=== PATIENT | female | born 1975 | race Caucasian/White ===

== ENCOUNTER 2020-07-16 07:52 | Outpatient (REF) | payer OTHER, SELFPAY ==
[2020-07-16 09:35] LABS: COVID-19 Test Negative (Negative); IDNOW Serial# 55D5AD1C
== END 2020-07-16 07:53 | disposition home or self-care (01) ==
LOC: HO.EMPCOV 07:52
PROVIDERS: Visit Provider Internal Medicine
DX: Z20.828 Contact with and (suspected) exposure to other viral communicable diseases (principal)
CPT/HCPCS: 87635; C9803

== ENCOUNTER 2020-08-15 07:31 | Outpatient (REF) | payer OTHER, SELFPAY ==
[2020-08-15 08:01] LABS: COVID-19 Test Negative (Negative)
== END 2020-08-15 07:32 | disposition home or self-care (01) ==
LOC: HO.EMPCOV 07:31
PROVIDERS: PCP Internal Medicine; Visit Provider Internal Medicine
DX: Z20.828 Contact with and (suspected) exposure to other viral communicable diseases (principal)
CPT/HCPCS: 87635; C9803

== ENCOUNTER 2021-09-09 06:13 | Outpatient (REF) | payer BC, SELFPAY ==
[2021-09-09 08:08] LABS: Cholesterol 208 mg/dL; HDL Cholesterol 53 mg/dL; LDL Cholesterol Calculated 139 mg/dl; Triglycerides 84 mg/dL
[2021-09-09 09:05] LABS: Folate 18.4 ng/mL (> or = 4.0); Vitamin B12 324 pg/mL (200-900)
== END 2021-09-09 06:14 | disposition home or self-care (01) ==
LOC: HO.LAB 06:13
PROVIDERS: PCP Internal Medicine; Visit Provider Internal Medicine
DX: Z00.00 Encounter for general adult medical examination without abnormal findings (principal); E53.8 Deficiency of other specified B group vitamins; E78.5 Hyperlipidemia, unspecified
CPT/HCPCS: 36415; 80061; 82607; 82746

== ENCOUNTER 2021-09-10 13:58 | Outpatient (REF) | payer BC, SELFPAY ==
[2021-09-10 16:50] LABS: Alanine Aminotransferase 13 U/L (0-31); Albumin Level 4.2 g/dL (3.5-5.0); Alkaline Phosphatase 36 U/L (39-117); Anion Gap 9 (12-20); Aspartate Amino Transferase 17 U/L (5-31); Bilirubin Total 0.3 mg/dL (0.0-1.0); Blood Urea Nitrogen 13 mg/dL (9-16); Calcium 9.4 mg/dL (8.4-10.2); Carbon Dioxide 28 mmol/L (22-29); Chloride 108 mmol/L (96-108); Estimated Glomerular Filt Rate > 60; Glucose Fasting 80 mg/dL (60-99); Iron 19 mcg/dL (30-160); Percent Iron Saturation 4 % (15-50); Sodium 141 mmol/L (135-145); Total Iron Binding Capacity 494 mcg/dL (228-428); Total Protein 7.3 g/dL (6.5-8.0); Unsaturated Iron Binding 475 ug/dL
[2021-09-10 16:53] LABS: TSH reflex Free T4 0.75 uIU/mL (0.32-4.0)
== END 2021-09-10 13:59 | disposition home or self-care (01) ==
LOC: HO.HMGCLDS 13:58
PROVIDERS: PCP Internal Medicine; Visit Provider Internal Medicine
DX: Z00.00 Encounter for general adult medical examination without abnormal findings (principal); E78.5 Hyperlipidemia, unspecified
CPT/HCPCS: 36415; 80053; 83540; 84443

== ENCOUNTER 2022-03-07 09:43 | Outpatient (REF) | payer BC, SELFPAY ==
[2022-03-07 12:09] LABS: Hematocrit 34.4 % (37.0-47.0); Hemoglobin 10.8 g/dl (12.0-16.0); Mean Corpuscular HGB Conc 31.4 g/dl (31.0-35.0); Mean Corpuscular Hemoglobin 27.3 pg (27.0-33.0); Mean Corpuscular Volume 87.1 fL (80.0-98.0); Mean Platelet Volume 10.6 fL (9.4-12.3); Platelet Count 258 X10*3/uL (160-400); Red Blood Count 3.95 X10*6/uL (4.20-5.50); Red Cell Distribution Width 20.2 % (11.0-16.0); White Blood Count 4.5 X10*3/uL (4.8-10.8)
[2022-03-07 12:11] LABS: Appearance Urine CLEAR; Color Urine YELLOW; Glucose Urine UA NEG (NEG); Leukocyte Esterase Urine 1+ (NEG); Nitrite Urine NEG (NEG); PH 6.5 (5.0-8.0); UACC Culture Trigger YES; Urine Blood 1+ (NEG); Urine Ketones NEG (NEG); Urine Protein NEG (NEG-TRACE)
[2022-03-07 12:37] LABS: Iron 23 mcg/dL (30-160); Percent Iron Saturation 6 % (15-50); Total Iron Binding Capacity 381 mcg/dL (228-428); Unsaturated Iron Binding 358 ug/dL
[2022-03-07 12:40] LABS: Oval Fat Bodies Urine NOTED; Squamous Epithelial Cell Urine 2+ /LPF
[2022-03-07 12:41] LABS: Bacteria Urine TRACE /LPF; WBC Urine 30-49 /HPF (0-4)
[2022-03-07 12:42] LABS: RBC Urine 0-2 /HPF (0)
== END 2022-03-07 09:44 | disposition home or self-care (01) ==
LOC: HO.HMGCLDS 09:43
PROVIDERS: Visit Provider Internal Medicine
DX: D50.9 Iron deficiency anemia, unspecified (principal)
CPT/HCPCS: 36415; 81001; 81003; 83540; 85027; 87086; 87088; 87186

== ENCOUNTER 2023-01-02 06:08 | Outpatient (REF) | payer BC, SELFPAY ==
[2023-01-02 11:25] LABS: MANUAL DIFF FLAG NO
[2023-01-02 11:43] LABS: Basophils Percent Auto 0.9 % (0-2); Eosinophils Absolute Auto 0.2 X10*3/uL (0.0-0.4); Eosinophils Percent Auto 5.3 % (0-4); Hematocrit 39.1 % (37.0-47.0); Hemoglobin 11.8 g/dl (12.0-16.0); Imm Gran Abs Auto 0.01 X10*3/uL (0.00-0.03); Imm Gran Pct Auto 0.2 % (0.0-0.4); Lymphocytes Absolute Auto 1.3 X10*3/uL (1.2-4.9); Lymphocytes Percent Auto 29.8 % (20-40); Mean Corpuscular HGB Conc 30.2 g/dl (31.0-35.0); Mean Corpuscular Hemoglobin 26.5 pg (27.0-33.0); Mean Corpuscular Volume 87.7 fL (80.0-98.0); Mean Platelet Volume 11.1 fL (9.4-12.3); Monocytes Absolute Auto 0.4 X10*3/uL (0.1-1.2); Neutrophils Absolute Auto 2.5 x10*3/uL (2.0-8.3); Neutrophils Percent Auto 55.8 % (45-73); Platelet Count 301 X10*3/uL (160-400); Red Blood Count 4.46 X10*6/uL (4.20-5.50); Red Cell Distribution Width 22.8 % (11.0-16.0); White Blood Count 4.5 X10*3/uL (4.8-10.8)
[2023-01-02 12:38] LABS: Alanine Aminotransferase 15 U/L (0-31); Albumin Level 4.1 g/dL (3.5-5.0); Alkaline Phosphatase 36 U/L (39-117); Anion Gap 13 (12-20); Aspartate Amino Transferase 17 U/L (5-31); Bilirubin Total 0.4 mg/dL (0.0-1.0); Blood Urea Nitrogen 17 mg/dL (9-16); Carbon Dioxide 23 mmol/L (22-29); Chloride 108 mmol/L (96-108); Cholesterol 210 mg/dL; Estimated Glomerular Filt Rate > 60; Glucose Fasting 87 mg/dL (60-99); HDL Cholesterol 49 mg/dL; Iron 49 mcg/dL (30-160); LDL Cholesterol Calculated 138 mg/dl; Percent Iron Saturation 14 % (15-50); Potassium 4.4 mmol/L (3.3-5.1); Sodium 140 mmol/L (135-145); Total Iron Binding Capacity 348 mcg/dL (228-428); Total Protein 6.8 g/dL (6.5-8.0); Triglycerides 115 mg/dL; Unsaturated Iron Binding 299 ug/dL
[2023-01-02 13:16] LABS: Folate 13.6 ng/mL (> or = 4.0); TSH reflex Free T4 2.26 uIU/mL (0.32-4.0); Vitamin B12 432 pg/mL (200-900)
== END 2023-01-02 06:09 | disposition home or self-care (01) ==
LOC: HO.HMGCLDS 06:08
PROVIDERS: PCP Internal Medicine; Visit Provider Internal Medicine
DX: Z00.00 Encounter for general adult medical examination without abnormal findings (principal); D50.9 Iron deficiency anemia, unspecified; E53.8 Deficiency of other specified B group vitamins; E78.5 Hyperlipidemia, unspecified
CPT/HCPCS: 36415; 80053; 80061; 82607; 82746; 83540; 84443; 85025

== ENCOUNTER 2023-01-19 21:37 | Emergency (ER) | payer BC, SELFPAY ==
--- NOTE | ~2023-01-19 | CT_ITS ---
EXAMINATION: CT ABDOMEN AND PELVIS WITH CONTRAST CLINICAL INFORMATION: Right flank pain COMPARISON: None available. TECHNIQUE: Multidetector volumetric images were obtained from the superior aspect of the liver through the pubic symphysis following administration 85 mL of Omnipaque 350 intravenous contrast. Sagittal and coronal reformatted images were obtained on the technologist's workstation. Oral contrast: No This CT examination was performed using dose optimization techniques as appropriate, variously including the following: *Automated exposure control *Adjustment of mA and/or kV according to patient size (this includes techniques or standardized protocols for targeted exams where dose is matched to indication/reason for exam; i.e. extremities or head) *Use of iterative reconstruction technique DLP: 528 mGy-cm FINDINGS: LUNG BASES: The visualized lung bases are unremarkable. LIVER, GALLBLADDER, AND BILIARY TREE: The liver is normal in size, shape, and attenuation. No focal hepatic lesion or biliary ductal dilatation is present. The gallbladder is unremarkable with no evidence of radiopaque gallstones, gallbladder wall thickening, or obvious pericholecystic inflammatory changes. PANCREAS: Unremarkable. SPLEEN: Unremarkable. ADRENAL GLANDS: Unremarkable. KIDNEYS AND URETERS: There is patchy heterogeneity of the right nephrogram, along with urothelial hyperemia of the right ureter compatible with pyelonephritis. Minimal right perinephric fat stranding. Left kidney unremarkable. BLADDER: Unremarkable. GASTROINTESTINAL TRACT: The small and large bowel are unremarkable. The appendix is unremarkable. ABDOMINAL WALL: No significant hernia is appreciated. LYMPH NODES: Normal. VASCULAR: Unremarkable. PELVIC VISCERA: There is a 7.3 cm mass in the central uterus, and a 4.5 cm mass within the right anterolateral uterus, presumably fibroids. No adnexal abnormalities. OSSEOUS STRUCTURES: Unremarkable. CT/CT abdomen pelvis w IV con IMPRESSION: * Acute uncomplicated right pyelonephritis with ureteritis. * Presumptive uterine fibroids as described. Recommend nonemergent pelvic ultrasound or MRI without and with contrast as clinically indicated
[2023-01-19 21:48] VITALS: BP 126/69; PULSE 90; RESP 18; TEMP 36.8; O2SAT 99; BMI 25.8
[2023-01-19 22:16] LABS: Basophils Percent Auto 0.2 % (0-2); Eosinophils Percent Auto 0.2 % (0-4); Hematocrit 39.9 % (37.0-47.0); Hemoglobin 12.8 g/dl (12.0-16.0); Imm Gran Abs Auto 0.03 X10*3/uL (0.00-0.03); Imm Gran Pct Auto 0.3 % (0.0-0.4); Lymphocytes Absolute Auto 0.5 X10*3/uL (1.2-4.9); Lymphocytes Percent Auto 3.9 % (20-40); MANUAL DIFF FLAG SCAN; Mean Corpuscular HGB Conc 32.1 g/dl (31.0-35.0); Mean Corpuscular Hemoglobin 27.6 pg (27.0-33.0); Mean Platelet Volume 9.8 fL (9.4-12.3); Monocytes Absolute Auto 0.4 X10*3/uL (0.1-1.2); Monocytes Percent Auto 3.4 % (2-11); Neutrophils Absolute Auto 10.8 x10*3/uL (2.0-8.3); Platelet Count 198 X10*3/uL (160-400); Red Blood Count 4.64 X10*6/uL (4.20-5.50); Red Cell Distribution Width 21.8 % (11.0-16.0); SCAN SMEAR FLAG 1; White Blood Count 11.7 X10*3/uL (4.8-10.8)
[2023-01-19 22:26] LABS: SLIDE REVIEW VERIFIED
[2023-01-19 22:41] LABS: Alanine Aminotransferase 15 U/L (0-31); Albumin Level 4.4 g/dL (3.5-5.0); Alkaline Phosphatase 43 U/L (39-117); Anion Gap 17 (12-20); Aspartate Amino Transferase 19 U/L (5-31); Bilirubin Direct 0.2 mg/dL (0.0-0.5); Bilirubin Total 0.8 mg/dL (0.0-1.0); Blood Urea Nitrogen 18 mg/dL (9-16); Calcium 9.7 mg/dL (8.4-10.2); Carbon Dioxide 24 mmol/L (22-29); Chloride 102 mmol/L (96-108); Creatinine Clr Calc Pharmacy 73.9; Estimated Glomerular Filt Rate > 60; Glucose Random 129 mg/dL (60-115); Lipase 13 U/L (8-78); Potassium 4.5 mmol/L (3.3-5.1); Sodium 138 mmol/L (135-145); Total Protein 7.4 g/dL (6.5-8.0)
[2023-01-19 22:42] VITALS: BP 106/55; PULSE 86; RESP 18; TEMP 37.4; O2SAT 98
[2023-01-19 22:44] LABS: Appearance Urine Clear; Color Urine Yellow; Glucose Urine UA Negative (Negative); Leukocyte Esterase Urine Small (1+) (Negative); Nitrite Urine Negative (Negative); PH 5.5 (5.0-9.0); UMIC TRIGGER UACC YES; Urine Blood Moderate (2+) (Negative); Urine Ketones 15 mg/dL (Negative); Urine Protein 100 (2+) mg/dL (Neg-Trace)
[2023-01-19 22:46] LABS: Bacteria Urine None Seen (None Seen); Hyaline Casts Urine 0-2 /LPF (0-2); Squamous Epithelial Cell Urine >20 /HPF (0-2); UACC Culture Trigger YES; WBC Urine >50 /HPF (0-5)
[2023-01-19] MEDS: Acetaminophen 325 MG TABLET 650 MG PO (22:52)
[2023-01-19] MEDS: Ondansetron ODT 4 MG TAB.RAPDIS SUBLINGUAL (22:52)
[2023-01-19 23:47] LABS: UPreg QC Valid YES; Urine Pregnancy NEGATIVE (NEGATIVE)
--- NOTE | 2023-01-19 23:52 | ED.FEMALEGU ---
HPI - Female Genitourinary General Chief complaint: Urogenital-Female Stated complaint: uti on antibiotics ,lower back pain headache Time Seen by Provider: 01/19/23 22:29 Source: patient Mode of arrival: ambulatory Limitations: no limitations History of Present Illness HPI Narrative: 47-year-old female history of migraines, hyperlipidemia, hypothyroidism, iron deficiency anemia presenting to the emergency department for evaluation of UTI symptoms, right flank pain. Patient tells me she started having urinary frequency, urgency, dysuria starting Thursday and on Thursday she started having right flank pain, associated nausea, low-grade fevers, patient reports max temperature a 100.2 degrees F. patient tells me she gets frequent UTIs however this 1 feels different. Patient reports she is currently taking 1 day worth of Macrobid. She tells me this was ordered by her OBGYN. Patient denies vomiting, diarrhea, headache, vision changes, chest pain, shortness of breath Related Data Home Medications Medication Instructions Recorded Confirmed ascorbic acid (vitamin C) 500 mg 500 mg PO DAILY 08/13/20 09/16/22 tablet ferrous sulfate 142 mg (45 mg 142 mg PO DAILY 08/13/20 09/16/22 iron) tablet,extended release norethindrone (contraceptive) 0.35 0.35 mg PO DAILY 08/13/20 09/16/22 mg tablet Previous Rx's Medication Instructions Recorded levothyroxine 125 mcg tablet 125 mcg PO DAILY #90 tabs 01/02/23 Allergies Allergy/AdvReac Type Severity Reaction Status Date / Time amoxicillin [AMOXICILLIN] Allergy Unknown Hives, rash Verified 01/19/23 21:54 flaxseed [FLAXSEED] Allergy Unknown Anaphylaxis, Verified 01/19/23 21:54 Throat swelling Review of Systems Review of Systems: Constitutional : No Weight loss, + Fever, + Chills, + Fatigue, + Malaise ENT/Mouth : No sore throat, No Rhinorrhea Eyes: No Eye Pain, No Swelling, No Redness Cardiovascular : No Chest Pain, No SOB, No Dyspnea on Exertion, No Orthopnea, No Edema, No Palpitations Respiratory : No Cough, No Sputum, No Wheezing Gastrointestinal : + Nausea, No Vomiting, No Diarrhea, No Constipation, No abdominal Pain, No Hematochezia, No Melena Genitourinary : No Dysuria, No Urinary Frequency, No Hematuria, Musculoskeletal : No joint pain, No Myalgias, No Joint Swelling, + flank pain Skin : No Skin Lesions, No rash Neuro : No Weakness, No Numbness, No Dizziness, No Headache Psych : No Anxiety/Panic, No Depression All other systems reviewed and are negative Yes all other systems are reviewed and are negative [facility] Past Medical History Attestation statement: The following information was validated with the patient. Source: old records reviewed and nursing notes reviewed Medical History Annual physical exam Graves disease Hypercholesterolemia Hyperlipemia Iron (Fe) deficiency anemia Mammogram normal Migraine without aura and without status migrainosus, not intractable Normal Pap smear Uterine fibroid Vitamin B12 deficiency Surgical History H/O removal of cyst History of ganglion cyst History of radioactive iodine thyroid ablation Family History Family History Father Stroke History of heart bypass surgery COPD (chronic obstructive pulmonary disease) Mother Asthma Brother No problems noted. Brother No problems noted. Sister No problems noted. 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 Oriented X3.? No acute distress.? Head: Normocephalic, atraumatic, no step-offs or deformities Eyes: Pupils equal, round and reactive to light.? CVS: Normal heart rate and rhythm.? Pulses normal.? Respiratory: No respiratory distress.? Breath sounds normal.? Abdomen: Soft and nontender.? Skin: Skin warm and dry.? Normal skin color.? Normal skin turgor.? Extremities: No lower extremity edema.? No calf ttp. 5/5 strength to bilateral upper and lower extremities Back: No midline tenderness, no C-spine tenderness, full range of motion, + right-sided CVA tenderness , negative on the left Neuro: Oriented X 3.? No motor deficit.? No sensory deficit. CN 2-12 intact Course Reevaluation(s) Reevaluation #1: CBC with slight leukocytosis.. Chemistry with no acute findings requiring intervention. Negative lactic. Patient's UA with moderate amount of blood however she is on her menses, no nitrites, no bacteria unlikely UTI. CT of the abdomen pelvis pending. Sign out to Dr. King Time: 01:19 Medications Administered Discontinued Medications Generic Name Dose Route Start Last Admin Trade Name Freq PRN Reason Stop Dose Admin Acetaminophen 650 mg 01/19/23 22:48 01/19/23 22:52 Acetaminophen 325 Mg Tablet PO 01/19/23 22:49 650 mg ONCE ONE Administration Sodium Chloride 1,000 mls @ 999 mls/hr 01/19/23 23:45 01/20/23 00:26 Ns IV 01/20/23 00:45 999 mls/hr .Q1H1M JANAE Administration Ceftriaxone Sodium 1 gm/ 50 mls @ 100 mls/hr 01/19/23 23:34 01/20/23 00:48 Sodium Chloride IV 01/20/23 00:03 100 mls/hr ONCE ONE Administration Iohexol 85 ml 01/20/23 01:06 01/20/23 01:06 Iohexol 350 Mg/Ml 100 Ml Infus..Btl IV 01/20/23 01:07 85 ml ONCE ONE Administration Ketorolac Tromethamine 30 mg 01/19/23 23:34 01/20/23 00:23 Ketorolac Tromethamine 15 Mg/Ml Vial IVPUSH 01/19/23 23:35 30 mg ONCE ONE Administration Ondansetron HCl 4 mg 01/19/23 22:48 01/19/23 22:52 Ondansetron Odt 4 Mg Tab.Rapdis SUBLINGUAL 01/19/23 22:49 4 mg ONCE ONE Administration Medical Decision Making Medical Decision Making [facility] Narrative: [id number] 47-year-old female presents with UTI symptoms and right flank pain all which started on Thursday. Reports associated nausea, fevers, chills. Physical exam significant for right-sided CVA tenderness, blood pressure slightly soft. Patient appears uncomfortable. Concerns for possible complicated UTI versus pyelonephritis versus simple UTI versus cystitis versus obstructing uropathy or kidney stone. Unlikely acute abdomen. No signs of cauda equina or epidural abscess. Plan labs, imaging, urine, . Differential Diagnosis Differential Diagnoses: The differential diagnosis associated with the presentation includes Concerns for possible complicated UTI versus pyelonephritis versus simple UTI versus cystitis versus obstructing uropathy or kidney stone. Unlikely acute abdomen. No signs of cauda equina or epidural abscess. Admission/Observation Consideration of admission/observation: Escalation of care including admission/observation considered Unlikely Lab Data [facility] Lab Attestation statement: I reviewed the patient's lab results. 01/19/23 22:10 01/19/23 22:10 Labs: Lab Results 01/19/23 01/19/23 01/19/23 Range/Units 22:10 22:10 22:38 WBC 11.7 H (4.8-10.8) X10*3/uL RBC 4.64 (4.20-5.50) X10*6/uL Hgb 12.8 (12.0-16.0) g/dl Hct 39.9 (37.0-47.0) % MCV 86.0 (80.0-98.0) fL MCH 27.6 (27.0-33.0) pg MCHC 32.1 (31.0-35.0) g/dl RDW 21.8 H (11.0-16.0) % Plt Count 198 D (160-400) X10*3/uL MPV 9.8 (9.4-12.3) fL Immature Gran % (Auto) 0.3 (0.0-0.4) % Neut % (Auto) 92.0 H (45-73) % Lymph % (Auto) 3.9 L (20-40) % [place] % (Auto) 3.4 (2-11) % Eos % (Auto) 0.2 (0-4) % Baso % (Auto) 0.2 (0-2) % Lymph # (Auto) 0.5 L (1.2-4.9) X10*3/uL [place] # (Auto) 0.4 (0.1-1.2) X10*3/uL Eos # (Auto) 0.0 (0.0-0.4) X10*3/uL Baso # (Auto) 0.0 (0.0-0.2) X10*3/uL Abs Immat Gran (auto) 0.03 (0.00-0.03) X10*3/uL Absolute Neuts (auto) 10.8 H (2.0-8.3) x10*3/uL Absolute Nucleated RBC 0.000 (0.0-0.012) X10*3/uL Nucleated RBC % (auto) 0.0 (0.0-0.2) /100WBC Smear Tech's Comments VERIFIED Sodium 138 (135-145) mmol/L Potassium 4.5 (3.3-5.1) mmol/L Chloride 102 (96-108) mmol/L Carbon Dioxide 24 (22-29) mmol/L Anion Gap 17 (12-20) BUN 18 H (9-16) mg/dL Creatinine 0.95 (0.5-1.4) mg/dL Estim Creat Clear Calc 73.9 Estimated GFR > 60 Random Glucose 129 H (60-115) mg/dL Lactic Acid (0.5-2.0) mmol/L Calcium 9.7 D (8.4-10.2) mg/dL Total Bilirubin 0.8 (0.0-1.0) mg/dL Direct Bilirubin 0.2 (0.0-0.5) mg/dL AST 19 (5-31) U/L ALT 15 (0-31) U/L Alkaline Phosphatase 43 (39-117) U/L Total Protein 7.4 (6.5-8.0) g/dL Albumin 4.4 (3.5-5.0) g/dL Lipase 13 (8-78) U/L Urine Color Yellow Urine Appearance Clear Urine pH 5.5 (5.0-9.0) Ur Specific [place] 1.020 (1.005-1.025) Urine Protein 100 (2+) H (Neg-Trace) mg/dL Urine Glucose (UA) Negative (Negative) mg/dL Urine Ketones 15 (Negative) mg/dL Urine Blood Moderate (2+) H (Negative) Urine Nitrite Negative (Negative) Ur Leukocyte Esterase Small (1+) H (Negative) Urine RBC 11-20 H (0-2) /HPF Urine WBC >50 H (0-5) /HPF Ur Squamous Epith Cells >20 (0-2) /HPF Urine Bacteria None Seen (None Seen) Hyaline Casts 0-2 (0-2) /LPF Urine Test (NEGATIVE) 01/19/23 01/20/23 Range/Units 22:38 00:45 WBC (4.8-10.8) X10*3/uL RBC (4.20-5.50) X10*6/uL Hgb (12.0-16.0) g/dl Hct (37.0-47.0) % MCV (80.0-98.0) fL MCH (27.0-33.0) pg MCHC (31.0-35.0) g/dl RDW (11.0-16.0) % Plt Count (160-400) X10*3/uL MPV (9.4-12.3) fL Immature Gran % (Auto) (0.0-0.4) % Neut % (Auto) (45-73) % Lymph % (Auto) (20-40) % [place] % (Auto) (2-11) % Eos % (Auto) (0-4) % Baso % (Auto) (0-2) % Lymph # (Auto) (1.2-4.9) X10*3/uL [place] # (Auto) (0.1-1.2) X10*3/uL Eos # (Auto) (0.0-0.4) X10*3/uL Baso # (Auto) (0.0-0.2) X10*3/uL Abs Immat Gran (auto) (0.00-0.03) X10*3/uL Absolute Neuts (auto) (2.0-8.3) x10*3/uL Absolute Nucleated RBC (0.0-0.012) X10*3/uL Nucleated RBC % (auto) (0.0-0.2) /100WBC Smear Tech's Comments Sodium (135-145) mmol/L Potassium (3.3-5.1) mmol/L Chloride (96-108) mmol/L Carbon Dioxide (22-29) mmol/L Anion Gap (12-20) BUN (9-16) mg/dL Creatinine (0.5-1.4) mg/dL Estim Creat Clear Calc Estimated GFR Random Glucose (60-115) mg/dL Lactic Acid 1.0 (0.5-2.0) mmol/L Calcium (8.4-10.2) mg/dL Total Bilirubin (0.0-1.0) mg/dL Direct Bilirubin (0.0-0.5) mg/dL AST (5-31) U/L ALT (0-31) U/L Alkaline Phosphatase (39-117) U/L Total Protein (6.5-8.0) g/dL Albumin (3.5-5.0) g/dL Lipase (8-78) U/L Urine Color Urine Appearance Urine pH (5.0-9.0) Ur Specific [place] (1.005-1.025) Urine Protein (Neg-Trace) mg/dL Urine Glucose (UA) (Negative) mg/dL Urine Ketones (Negative) mg/dL Urine Blood (Negative) Urine Nitrite (Negative) Ur Leukocyte Esterase (Negative) Urine RBC (0-2) /HPF Urine WBC (0-5) /HPF Ur Squamous Epith Cells (0-2) /HPF Urine Bacteria (None Seen) Hyaline Casts (0-2) /LPF Urine Test NEGATIVE (NEGATIVE) Independent Interpretation I performed an independent interpretation of an: CT Scan Radiology Impression Discussion of test interpretation with radiology: I have reviewed the radiologist's reading. Core Measures AMI core measures followed: Yes Measure exclusions: not indicated Discharge Plan Discharge Clinical Impression: UTI symptoms, Acute right flank pain Patient Disposition: Home, Self-Care Instructions: Abdominal Pain (ED), Flank Pain (ED), Urinary Urgency and Frequency (DC) Additional Instructions: Take your medications as prescribed. If you were prescribed antibiotics today, it is important that you take your medication to their entirety, do not skip any doses, do not finish them early. Follow-up with your primary care provider this week. Return to the emergency department with new or worsening symptoms. Such as fevers, chills, chest pain, shortness of breath, nausea, vomiting, dizziness, headache, vision changes, lethargy In case of emergency call 911 Prescriptions: No Action levothyroxine 125 mcg tablet 125 mcg PO DAILY Qty: 90 3RF norethindrone (contraceptive) 0.35 mg tablet 0.35 mg PO DAILY Slow Fe 142 mg (45 mg iron) tablet extended release 142 mg PO DAILY ascorbic acid (vitamin C) 500 mg tablet 500 mg PO DAILY Referrals: Physician,Unknown J [Primary Care Provider] - 2 days
[2023-01-20] MEDS: Ketorolac Tromethamine 15 MG/ML VIAL 30 MG IVPUSH (00:23)
[2023-01-20] MEDS: 0.9 % Sodium Chloride 1,000 ML 999 ML IV (00:26)
[2023-01-20 00:38] VITALS: BP 110/68; PULSE 79; RESP 16; TEMP 36.8; O2SAT 97
--- NOTE | 2023-01-20 00:41 | PC.NURSE ---
antibiotic late due to trouble with obtaining second set of blood cultures. 2nd set culture being drawn now by PCT. will administer antibiotic as soon as blood cultures obtained. pt medicated per oct. will CTM.
[2023-01-20] MEDS: cefTRIAXone sodium 1 GM in 0.9 % Sodium Chloride 50 ML IV (00:48)
[2023-01-20] MEDS: iohexoL 350 MG/ML 100 ML INFUS..BTL 85 ML IV (01:06)
== END 2023-01-20 02:48 | disposition home or self-care (01) ==
PROVIDERS: Physician Assistant; Emergency Provider Internal Medicine
DX: N12 Tubulo-interstitial nephritis, not specified as acute or chronic (principal); N39.0 Urinary tract infection, site not specified; R10.9 Unspecified abdominal pain; Z79.899 Other long term (current) drug therapy
CPT/HCPCS: 36415; 74177; 80048; 80076; 81001; 81025; 83605; 83690; 85025; 87040; 87086; 96361; 96374; 96375; 99284; J0696; J1885; Q9967

== ENCOUNTER 2023-04-30 08:03 | Outpatient (AMB) | payer BC, SELFPAY ==
--- NOTE | 2023-04-30 08:08 | MHC.OFFWIV ---
Intake Vital Signs 04/30/23 08:10 Height 5 ft 6 in Weight 160 lb 6 oz BMI 25.9 BP 106/88 Blood Pressure Location Lt brachial Position Sitting Pulse 80 Pulse Source Pulse Oximeter Temp 98 F Temp Source Oral Pulse Oximetry (%) 98 Oxygen Delivery Method Room Air Intake Visit Reasons: EP Headache/?Thyroid/Heart Intake Note: Pt is here today for headache and also heart starts racing started 3 wks ago Patient Tobacco Use Status: Never used Tobacco Allergies amoxicillin [AMOXICILLIN] Allergy (Unknown, Verified 04/30/23 08:11) Hives, rash flaxseed [FLAXSEED] Allergy (Unknown, Verified 04/30/23 08:11) Anaphylaxis, Throat swelling Do you need a note to return to daycare/school/sports/work: No HPI HPI Comments History of Present Illness Details 47-year-old female history of Graves disease on levothyroxine a presents for episodic palpitations and intermittent headaches. Patient states that for the past several weeks she has been having intermittent episodes headache will. During several she also endorses palpitations. She endorses some cold intolerance. She is concerned about her thyroid and was attempting to get in touch with the primary care point no ointments were available. She denies any chest pain or shortness of breath during these episodes. Denies any unexplained weight loss or weight gain or fever chills. [facility] Medical History Annual physical exam Graves disease Hypercholesterolemia Hyperlipemia Iron (Fe) deficiency anemia Mammogram normal Migraine without aura and without status migrainosus, not intractable Normal Pap smear Uterine fibroid Vitamin B12 deficiency Surgical History H/O removal of cyst History of ganglion cyst History of radioactive iodine thyroid ablation Family History Father Stroke History of heart bypass surgery COPD (chronic obstructive pulmonary disease) Mother Asthma Brother No problems noted. Brother No problems noted. Sister No problems noted. 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) Housing: House Patient Tobacco Use Status: Never used Tobacco e-Cigarette/Vaping Use: Never Used Current occupational status: employed Cognitive needs: No Hearing needs: No Vision needs: No Review of Systems Const All systems reviewed & are unremarkable except as noted in HPI and below Denies fever(s), Denies headache(s) and Denies weakness Eyes Reports no additional complaints ENT Reports no additional complaints and Denies headache(s) Card Denies chest pain, Reports rapid heart rate, Reports irregular heart rhythm, Denies leg edema and Denies dyspnea Resp Denies cough and Denies dyspnea GI Denies abdominal pain, Denies nausea and Denies vomiting Denies urinary frequency and Denies dysuria Musc Reports no additional complaints Neuro Denies headache(s) and Denies weakness Psych Reports no additional complaints Endo Reports no additional complaints Physical Exam Vital Signs: Last Vital Signs Temp 98 F 04/30/23 08:10 Pulse 80 04/30/23 08:10 BP 106/88 04/30/23 08:10 Pulse Ox 98 04/30/23 08:10 Oxygen Delivery Method Room Air 04/30/23 08:10 BMI result Body Mass Index 25.9 Const General: cooperative, no acute distress and alert Orientation/consciousness: patient oriented x3 Limitations: no limitations HEENT Head: Yes normal to inspection Ears: hearing grossly normal bilaterally and external ears normal General nose exam: Normal external nose present Eyes General: appearance normal, both eyes and all related structures Neck Neck: Yes normal visual inspection Chest Chest palpation & inspection: normal inspection of the chest Resp Effort & Inspection: normal respiratory effort, able to speak in complete sentences and no audible wheezes Auscultation: clear to auscultation bilaterally Cardio Rate: regular rate Rhythm: regular rhythm Heart sounds: S1 normal heart sound present and S2 normal heart sound present GI Inspection: Yes normal to inspection Palpation (GI): Soft to palpation and nontender Skin General skin exam: no rashes or lesions noted Neuro General: patient oriented x3 Psych Appearance: grossly normal Mental Status: mental status grossly normal Speech and movement: Normal speech and movement present Affect: normal affect Attitude: cooperative Thought process: Normal thought process present Thought content: Normal thought content present Assessment & Plan Assessment & Plan (1) Palpitations: Code(s): R00.2 - Palpitations Plan VSs. Exam patient's presents oriented no acute distress exam is otherwise unremarkable note above. Given patient being taken in history of concerning consideration is arrhythmia versus issues concerning thyroid for later brief disease. Withdrawal basic labs. Given the absence of chest pain or palpitations at this time do not feel an EKG is necessary. If labs are normal discussed with patient that she might want to reach out to her PCP to schedule Holter monitor. Discharge instructions, follow up and treatment are discussed with patient in my usual fashion. Alternatives in treatment are also discussed. The patient will return for worsening symptoms or as needed. Advised that any labs/imaging ordered will be followed up on and contact made if further treatment needed. Counseled that patient's condition may require further evaluation and/or treatment. Symptoms of concern for worsening disorder discussed in detail in my customary manner. Patient does verbalize understanding of the plan, there are no apparent barriers to communication. The patient is given the opportunity to ask questions and have them answered to his/her satisfaction Orders: Orders Basic Metabolic Panel Today R00.2 - Palpitations Magnesium Today R00.2 - Palpitations TSH reflex Free T4 Today R00.2 - Palpitations Complete Blood Count no Diff Today R00.2 - Palpitations Patient Instructions: You were seen for you palpitations. At this time your exam is reassuring. While we do not know for sure you palpitations could be related to your thyroid or arrhythmia. Lab work was drawn and you will be notified of abnormal results. If negative you may discuss a Holter monitor with you pcp. if you experience any new or worsening symptoms please return or present to the emergency department Coding Level of Care Code Est Pt Level 3 (75033) Diagnoses Palpitations R00.2
[2023-04-30 08:10] VITALS: BP 106/88; PULSE 80; TEMP 36.6; O2SAT 98; BMI 25.9
== END 2023-04-30 08:41 | disposition home or self-care (01) ==
PROVIDERS: PCP Internal Medicine; Visit Provider Physician Assistant
DX: R00.2 Palpitations (principal)
CPT/HCPCS: 99213

== ENCOUNTER 2023-04-30 08:35 | Outpatient (REF) | payer BC, SELFPAY ==
[2023-04-30 11:43] LABS: Hematocrit 39.2 % (37.0-47.0); Hemoglobin 12.3 g/dl (12.0-16.0); Mean Corpuscular HGB Conc 31.4 g/dl (31.0-35.0); Mean Corpuscular Hemoglobin 28.4 pg (27.0-33.0); Mean Corpuscular Volume 90.5 fL (80.0-98.0); Mean Platelet Volume 11.2 fL (9.4-12.3); Platelet Count 215 X10*3/uL (160-400); Red Blood Count 4.33 X10*6/uL (4.20-5.50); Red Cell Distribution Width 13.3 % (11.0-16.0); White Blood Count 7.3 X10*3/uL (4.8-10.8)
[2023-04-30 12:12] LABS: Anion Gap 11 (12-20); Blood Urea Nitrogen 14 mg/dL (9-16); Calcium 9.6 mg/dL (8.4-10.2); Carbon Dioxide 27 mmol/L (22-29); Chloride 105 mmol/L (96-108); Estimated Glomerular Filt Rate > 60; Glucose Random 89 mg/dL (60-115); Sodium 139 mmol/L (135-145)
[2023-04-30 12:31] LABS: TSH reflex Free T4 1.62 uIU/mL (0.32-4.0)
== END 2023-04-30 08:36 | disposition home or self-care (01) ==
LOC: HO.HMGCLDS 08:35
PROVIDERS: PCP Internal Medicine; Visit Provider Physician Assistant
DX: R00.2 Palpitations (principal)
CPT/HCPCS: 36415; 80048; 83735; 84443; 85027

== ENCOUNTER 2023-09-17 08:08 | Outpatient (AMB) | payer BC, SELFPAY ==
[2023-09-17 08:09] VITALS: BP 106/78; PULSE 67; O2SAT 95; BMI 26.5
--- NOTE | 2023-09-17 08:09 | A.OFFPC_ITS ---
Vital Signs 09/17/23 08:09 Height 5 ft 6 in Weight 164 lb BMI 26.5 BP 106/78 Blood Pressure Location Lt brachial Position Sitting Pulse 67 Pulse Source Pulse Oximeter Pulse Oximetry (%) 95 Oxygen Delivery Method Room Air Intake Visit Reasons: PE Intake Note: Pt is here today for PE. Allergies amoxicillin [AMOXICILLIN] Allergy (Unknown, Verified 09/17/23 08:12) Hives, rash flaxseed [FLAXSEED] Allergy (Unknown, Verified 09/17/23 08:12) Anaphylaxis, Throat swelling Medication List - Last Reconciled 09/17/23 by Cee Ag MD ascorbic acid (vitamin C) 500 mg PO DAILY ferrous sulfate ER 142 mg PO DAILY levothyroxine 125 mcg PO DAILY sodium,potassium,mag sulfates 17.5-3.13-1.6 gram PO Tobacco use date assessed: 09/17/23 Dental Screening Dental Screen Date: 09/17/23 Did you have a dental visit in the last 12 months?: Yes Did you have a dental problem in the last 6 months where you did not have access to dental care?: No Was dental information given to patient?: Patient has dentist HPI PE HPI Details Pt presents for PE. Patient has been getting iron infusion for iron deficiency anemia at [facility] ordered by her panel flow machine operator because of heavy menstrual bleeding. She has a colonoscopy and EGD scheduled the [facility]. Patient had a few episodes of palpitations in March not related to physical activity. Bukre randhawa reports being under stress at work and at home. She denies loss of consciousness , nausea vomiting chest pains associated with the palpitations. Patient was evaluated in [facility] and basic cardiac workup was negative. she has scheduled an appointment at [facility] with manager hydraulic. [facility] Medical History (Updated 09/17/23 @ 08:42 by Cee Ag MD) Mammogram normal Normal Pap smear Vitamin B12 deficiency Hyperlipemia Annual physical exam Iron (Fe) deficiency anemia Uterine fibroid Hypercholesterolemia Graves disease Migraine without aura and without status migrainosus, not intractable Surgical History (Updated 09/17/23 @ 08:42 by Cee Ag MD) H/O removal of cyst History of radioactive iodine thyroid ablation History of ganglion cyst Family History Father Stroke History of heart bypass surgery COPD (chronic obstructive pulmonary disease) Mental health disorder Mother Asthma Mental health disorder Brother No problems noted. Brother No problems noted. Sister No problems noted. 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) Housing: House Patient Tobacco Use Status: Never used Tobacco e-Cigarette/Vaping Use: Never Used Current occupational status: employed Cognitive needs: No Hearing needs: No Vision needs: No Questionnaire Thrive Questionnaire Date Thrive assessed: 09/16/22 I am a: Patient What is your living situation today?: I have a steady place to live Within the past 12 months, did the food you bought not last and you didn't have the money to get more?: Never true Within the past 12 months, did you worry whether your food would run out before you got money to buy more?: Never true AUDIT C Alcohol Use Questionnaire (AUDIT-C) 1. How often do you have a drink containing alcohol?: Monthly or less 2. How many drinks containing alcohol do you have on a typical day when you are drinking?: 1 or 2 3. How often do you have six or more drinks on one occasion?: Never Total Score: 1 LEANNE-7 AMB Questionnaire LEANNE-7 Date LEANNE - 7 assessed: 09/16/22 Feeling nervous, anxious, or on edge: 1 = Several days Not being able to stop or control worryin = Several days Worrying too much about different things: 1 = Several days Trouble relaxin = Several days Being so restless that it is hard to sit still: 1 = Several days Becoming easily annoyed or irritable: 1 = Several days Feeling afraid as if something awful might happen: 0 = Not at all Total LEANNE-7 score (0-4 normal; 5-9 mild; 10-14 moderate; 15-21 severe): 6 Source: Developed by Drs. Zafar Gar, Chelsea Bejarano, Cali Hall and colleagues, with an educational samira from [employer]. Review of Systems Const All systems reviewed & are unremarkable except as noted in HPI and below Reports no additional complaints Eyes Reports no additional complaints ENT Reports no additional complaints Card Reports no additional complaints Resp Reports no additional complaints GI Reports no additional complaints Reports no additional complaints Physical exam (Primary Care) Vital Signs: Last Vital Signs Pulse 67 09/17/23 08:09 BP 106/78 09/17/23 08:09 Pulse Ox 95 09/17/23 08:09 Oxygen Delivery Method Room Air 09/17/23 08:09 BMI result Body Mass Index 26.5 Tobacco/Smoking Status: Tobacco use Status Tobacco use date assessed 09/17/23 09/17/23 08:14 Patient Tobacco Use Status Never used Tobacco 09/17/23 08:14 e-Cigarette/Vaping Use Never Used 09/17/23 08:14 Thrive Assessment: Date of Thrive Assessment Date Thrive assessed 09/16/22 09/17/23 08:14 Const General: no acute distress HENMT Head: Yes normal to inspection Ears: hearing grossly normal bilaterally General nose exam: Normal external nose present Face and sinus: Yes normal facial exam Mouth: Normal oral and palatal mucosa present Throat: Yes posterior oropharynx normal Eyes General: appearance normal, both eyes and all related structures Neck Neck: Yes no lymphadenopathy and Yes supple Resp Effort & Inspection: normal respiratory effort Auscultation: clear to auscultation bilaterally Cardio Rhythm: regular rhythm Heart sounds: S1 normal heart sound present and S2 normal heart sound present GI Inspection: Yes normal to inspection Palpation (GI): Soft to palpation Percussion: Yes normal to percussion Auscultation: normal bowel sounds Assessment and Plan Assessment & Plan (1) Palpitations: Comment: pt will see manager hydraulic at [facility] Code(s): R00.2 - Palpitations Plan: Stress management and regular cardiovascular exercises discussed with the patient. she will return for fasting blood (2) Iron (Fe) deficiency anemia: Comment: HEAVY MENSES, f/u with panel flow machine operator Code(s): D50.9 - Iron deficiency anemia, unspecified Plan: Follow-up with panel flow machine operator and GI (3) Vitamin B12 deficiency: Code(s): E53.8 - Deficiency of other specified B group vitamins Plan: CHECK VITAMIN B12 (4) Hyperlipemia: Code(s): E78.5 - Hyperlipidemia, unspecified Plan: Check lipid profile well-balanced diet discussed with the patient (5) Annual physical exam: Code(s): Z00.00 - Encounter for general adult medical examination without abnormal findings Plan: Well-balanced diet regular physical activity discussed with the patient. She is up-to-date with mammogram Pap smear and will have a colonoscopy at [facility] (6) Hx of colonoscopy: Comment: [facility] Code(s): Z98.890 - Other specified postprocedural states Orders: Orders Comprehensive [place]. Panel Fast Today D50.9 - Iron deficiency anemia, unspecified, E53.8 - Deficiency of other specified B group vitamins, E78.5 - Hyperlipidemia, unspecified, R00.2 - Palpitations, Z00.00 - Encounter for general adult medical examination without abnormal findings TSH reflex Free T4 Today D50.9 - Iron deficiency anemia, unspecified, E53.8 - Deficiency of other specified B group vitamins, E78.5 - Hyperlipidemia, unspecified, R00.2 - Palpitations, Z00.00 - Encounter for general adult medical examination without abnormal findings Lipid Panel Today D50.9 - Iron deficiency anemia, unspecified, E53.8 - Deficiency of other specified B group vitamins, E78.5 - Hyperlipidemia, unspecified, R00.2 - Palpitations, Z00.00 - Encounter for general adult medical examination without abnormal findings Complete Blood Count Auto Diff Today D50.9 - Iron deficiency anemia, unspecified, E53.8 - Deficiency of other specified B group vitamins, E78.5 - Hyperlipidemia, unspecified, R00.2 - Palpitations, Z00.00 - Encounter for general adult medical examination without abnormal findings Vitamin B12 Today E53.8 - Deficiency of other specified B group vitamins Coding Level of Care Code Est Pt Prev Care 40-64y(61405) Diagnoses Palpitations R00.2 Iron (Fe) deficiency anemia D50.9 Vitamin B12 deficiency E53.8 Hyperlipemia E78.5 Annual physical exam Z00.00 Hx of colonoscopy Z98.890
== END 2023-09-17 08:48 | disposition home or self-care (01) ==
LOC: HO.HMGC 08:08
PROVIDERS: PCP Internal Medicine; Visit Provider Internal Medicine
DX: R00.2 Palpitations (principal); D50.9 Iron deficiency anemia, unspecified; E53.8 Deficiency of other specified B group vitamins; E78.5 Hyperlipidemia, unspecified; Z00.00 Encounter for general adult medical examination without abnormal findings; Z98.890 Other specified postprocedural states
CPT/HCPCS: 99396

== ENCOUNTER 2023-11-05 06:06 | Outpatient (REF) | payer BC, SELFPAY ==
[2023-11-05 11:34] LABS: MANUAL DIFF FLAG NO
[2023-11-05 11:40] LABS: Basophils Percent Auto 0.8 % (0-2); Eosinophils Absolute Auto 0.2 X10*3/uL (0.0-0.4); Eosinophils Percent Auto 4.3 % (0-4); Hematocrit 39.4 % (37.0-47.0); Hemoglobin 12.8 g/dl (12.0-16.0); Imm Gran Abs Auto 0.01 X10*3/uL (0.00-0.03); Imm Gran Pct Auto 0.2 % (0.0-0.4); Lymphocytes Absolute Auto 1.3 X10*3/uL (1.2-4.9); Lymphocytes Percent Auto 26.2 % (20-40); Mean Corpuscular HGB Conc 32.5 g/dl (31.0-35.0); Mean Corpuscular Volume 92.5 fL (80.0-98.0); Mean Platelet Volume 10.5 fL (9.4-12.3); Monocytes Absolute Auto 0.3 X10*3/uL (0.1-1.2); Monocytes Percent Auto 6.1 % (2-11); Neutrophils Absolute Auto 3.2 x10*3/uL (2.0-8.3); Neutrophils Percent Auto 62.4 % (45-73); Platelet Count 256 X10*3/uL (160-400); Red Blood Count 4.26 X10*6/uL (4.20-5.50); Red Cell Distribution Width 14.9 % (11.0-16.0); White Blood Count 5.1 X10*3/uL (4.8-10.8)
[2023-11-05 12:24] LABS: Vitamin B12 319 pg/mL (200-900)
[2023-11-05 12:26] LABS: Alanine Aminotransferase 11 U/L (0-31); Albumin Level 4.2 g/dL (3.5-5.0); Alkaline Phosphatase 41 U/L (39-117); Anion Gap 11 (12-20); Aspartate Amino Transferase 16 U/L (5-31); Bilirubin Total 0.1 mg/dL (0.0-1.0); Blood Urea Nitrogen 18 mg/dL (9-16); Calcium 9.2 mg/dL (8.4-10.2); Carbon Dioxide 25 mmol/L (22-29); Chloride 106 mmol/L (96-108); Cholesterol 217 mg/dL (<200); Estimated Glomerular Filt Rate > 60; Glucose Fasting 95 mg/dL (60-99); HDL Cholesterol 53 mg/dL (>40); LDL Cholesterol Calculated 131 mg/dL (<100); Potassium 4.1 mmol/L (3.3-5.1); Sodium 138 mmol/L (135-145); TSH reflex Free T4 3.48 uIU/mL (0.32-4.0); Total Protein 7.2 g/dL (6.5-8.0); Triglycerides 169 mg/dL (<150)
== END 2023-11-05 06:07 | disposition home or self-care (01) ==
LOC: HO.HMGCLDS 06:06
PROVIDERS: PCP Internal Medicine; Visit Provider Internal Medicine
DX: Z00.00 Encounter for general adult medical examination without abnormal findings (principal); R00.2 Palpitations; D50.9 Iron deficiency anemia, unspecified; E53.8 Deficiency of other specified B group vitamins; E78.5 Hyperlipidemia, unspecified
CPT/HCPCS: 36415; 80053; 80061; 82607; 84443; 85025

== ENCOUNTER 2024-10-03 14:01 | Outpatient (AMB) | payer BC, SELFPAY ==
[2024-10-03 14:25] VITALS: BP 118/74; PULSE 78; RESP 18; TEMP 37.1; O2SAT 97; BMI 27.1
--- NOTE | 2024-10-03 14:25 | MHC.PC.OV ---
Vital Signs 10/03/24 14:25 Height 5 ft 6 in Weight 168 lb BMI 27.1 BP 118/74 Blood Pressure Location Lt brachial Position Sitting Respiration 18 Pulse 78 Pulse Source Pulse Oximeter Temp 98.7 F Temp Source Oral Pulse Oximetry (%) 97 Oxygen Delivery Method Room Air Intake Visit Reasons: Annual PE ~ R/S provider out on vacation Intake Note: Pt is here today for PE. Allergies amoxicillin [AMOXICILLIN] Allergy (Unknown, Verified 10/03/24 14:26) Hives, rash flaxseed [FLAXSEED] Allergy (Unknown, Verified 10/03/24 14:26) Anaphylaxis, Throat swelling Medication List - Last Reconciled 10/03/24 by Cee Ag MD ascorbic acid (vitamin C) 500 mg PO DAILY epinephrine (EpiPen 2-Med) 0.3 mg (0.3 mL) IM Q10M PRN ferrous sulfate ER 142 mg PO DAILY levothyroxine 125 mcg PO DAILY pantoprazole (Protonix) 40 mg PO BID sodium,potassium,mag sulfates 17.5-3.13-1.6 gram PO Tobacco use date assessed: 10/03/24 Dental Screening Dental Screen Date: 10/03/24 Did you have a dental visit in the last 12 months?: Yes Did you have a dental problem in the last 6 months where you did not have access to dental care?: No Was dental information given to patient?: Patient has dentist HPI Annual PE ~ R/S provider out on vacation HPI Details Pt presents for PE. Patient complains of chronic persistent left knee pain and swelling she is established with [facility]. Patient had an MRI without significant abnormalities. She completed a physical therapy without significant improvement [facility] Medical History Mammogram normal Normal Pap smear Vitamin B12 deficiency Hyperlipemia Annual physical exam Iron (Fe) deficiency anemia Uterine fibroid Hypercholesterolemia Graves disease Migraine without aura and without status migrainosus, not intractable Surgical History (Updated 10/03/24 @ 14:46 by Cee Ag MD) Hx of hysterectomy H/O removal of cyst History of radioactive iodine thyroid ablation History of ganglion cyst Family History Father Stroke History of heart bypass surgery COPD (chronic obstructive pulmonary disease) Mental health disorder Mother Asthma Mental health disorder Brother Heart attack Brother No problems noted. Sister No problems noted. 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 1. Little interest or pleasure in doing things: not at all 2. Feeling down, depressed, or hopeless: not at all 3. Trouble falling or staying asleep, or sleeping too much: not at all 4. Feeling tired or having little energy: not at all 5. Poor appetite or overeating: not at all 6. Feeling bad about yourself - or that you are a failure or have let yourself or your family down: not at all 7. Trouble concentrating on things, such as reading the newspaper or watching television: not at all 8. Moving or speaking so slowly that other people could have noticed. Or the opposite - being so fidgety or restless that you have been moving around a lot more than usual: not at all 9. Thoughts that you would be better off or of hurting yourself in some way: not at all Total score: 0 Depression Screening Interpretation: Negative Depression Screening Done: Yes 52004 - PHQ-9 Billing: Yes Source: Developed by Drs. Zafar Gar, Chelsea Bejarano, Cali Hall and colleagues, with an educational samira from [employer]. Thrive Questionnaire Date Thrive assessed: 10/03/24 I am a: Patient What is your living situation today?: I have a steady place to live Within the past 12 months, did the food you bought not last and you didn't have the money to get more?: Never true Within the past 12 months, did you worry whether your food would run out before you got money to buy more?: Never true Do you have trouble paying for medicines?: No Do you have trouble getting transportation to medical appointments?: No Do you have trouble paying your heating and electricity bill?: No Do you have trouble taking care of your child, family member or friend?: No Do you have trouble with day-to-day activities such as bathing, preparing meals, shopping, managing finances, etc.?: No Are you currently unemployed and looking for a job?: No Are you interested in more education?: No Please select the resources that you would like help with: None Currently or been in a relationship where the following occur: No concerns reported THRIVE Score: 0 AUDIT C Alcohol Use Questionnaire (AUDIT-C) 1. How often do you have a drink containing alcohol?: 2-4 times a month 2. How many drinks containing alcohol do you have on a typical day when you are drinking?: 1 or 2 3. How often do you have six or more drinks on one occasion?: Never Total Score: 2 LEANNE-7 AMB Questionnaire LEANNE-7 Date LEANNE - 7 assessed: 10/03/24 Feeling nervous, anxious, or on edge: 0 = Not at all Not being able to stop or control worryin = Not at all Worrying too much about different things: 0 = Not at all Trouble relaxin = Not at all Being so restless that it is hard to sit still: 0 = Not at all Becoming easily annoyed or irritable: 0 = Not at all Feeling afraid as if something awful might happen: 0 = Not at all Total LEANNE-7 score (0-4 normal; 5-9 mild; 10-14 moderate; 15-21 severe): 0 Source: Developed by Drs. Zafar Gar, Chelsea Bejarano, Cali Hall and colleagues, with an educational samira from [employer]. LEANNE-7 Assessment Billing LEANNE-7 Assessment Tool: LEANNE-7 Assessment 11610 Review of Systems Const All systems reviewed & are unremarkable except as noted in HPI and below Reports no additional complaints Eyes Reports no additional complaints ENT Reports no additional complaints Card Reports no additional complaints Resp Reports no additional complaints GI Reports no additional complaints Reports no additional complaints Physical exam (Primary Care) Vital Signs: Last Vital Signs Temp 98.7 F 10/03/24 14:25 Pulse 78 10/03/24 14:25 Resp 18 10/03/24 14:25 BP 118/74 02/03/25 14:25 Pulse Ox 97 10/03/24 14:25 Oxygen Delivery Method Room Air 10/03/24 14:25 BMI result Body Mass Index 27.1 Tobacco/Smoking Status: Tobacco use Status Tobacco use date assessed 10/03/24 10/03/24 14:30 Patient Tobacco Use Status Never used Tobacco 10/03/24 14:30 e-Cigarette/Vaping Use Never Used 10/03/24 14:30 PHQ-9: PHQ-9 Score PHQ-9: Total score 0 10/03/24 14:32 Depression Screening Interpretation: Negative Thrive Assessment: Date of Thrive Assessment Date Thrive assessed 10/03/24 10/03/24 14:30 Currently or been in a relationship where the following occur: No concerns reported Const General: no acute distress HENMT Head: Yes normal to inspection Ears: hearing grossly normal bilaterally Face and sinus: Yes normal facial exam Eyes General: appearance normal, both eyes and all related structures Neck Neck: Yes no lymphadenopathy and Yes supple Resp Effort & Inspection: normal respiratory effort Auscultation: clear to auscultation bilaterally GI Inspection: Yes normal to inspection Palpation (GI): Soft to palpation Percussion: Yes normal to percussion Auscultation: normal bowel sounds Extrem Other: This is a slightly decreased range of motion in the left knee medial aspect tenderness no erythema warmth Coding Level of Care Code Est Pt Prev Care 40-64y(16070) Diagnoses Annual physical exam Z00.00 Hyperlipemia E78.5 Vitamin B12 deficiency E53.8 Iron (Fe) deficiency anemia D50.9 Additional Codes LEANNE-7 Assessment Billing - LEANNE-7 Assessment Tool: LEANNE-7 Assessment [id number] ([id number]) PHQ-9 - 30706 - PHQ-9 Billing: Yes ([id number]) Assessment & Plan Assessment & Plan (1) Annual physical exam: Code(s): Z00.00 - Encounter for general adult medical examination without abnormal findings Category: Medical Plan: Well-balanced diet regular physical activity discussed with the patient she is up-to-date with the mammogram and colonoscopy (2) Hyperlipemia: Code(s): E78.5 - Hyperlipidemia, unspecified Category: Medical Plan: Start atorvastatin 20 mg daily and repeat lipid profile in 2 months, patient had a calcium score CT by tanning solution maker at [facility] and results are pending. She has strong family history of coronary artery disease: her brother at 53 had [place] and her father CABG in 40s (3) Vitamin B12 deficiency: Code(s): E53.8 - Deficiency of other specified B group vitamins Category: Medical Plan: Continue vitamin B12 supplement (4) Iron (Fe) deficiency anemia: Comment: HEAVY MENSES, f/u with box toe maker Code(s): D50.9 - Iron deficiency anemia, unspecified Category: Medical Plan: Check CBC and iron studies Orders: Orders Comprehensive [place]. Panel Fast Today E53.8 - Deficiency of other specified B group vitamins, E78.5 - Hyperlipidemia, unspecified, Z00.00 - Encounter for general adult medical examination without abnormal findings Complete Blood Count Auto Diff Today Z00.00 - Encounter for general adult medical examination without abnormal findings Lipid Panel Today E53.8 - Deficiency of other specified B group vitamins, E78.5 - Hyperlipidemia, unspecified, Z00.00 - Encounter for general adult medical examination without abnormal findings LDL Cholesterol Direct Today E53.8 - Deficiency of other specified B group vitamins, E78.5 - Hyperlipidemia, unspecified, Z00.00 - Encounter for general adult medical examination without abnormal findings TSH reflex Free T4 Today E53.8 - Deficiency of other specified B group vitamins, E78.5 - Hyperlipidemia, unspecified, Z00.00 - Encounter for general adult medical examination without abnormal findings Lipid Panel 2 Months D50.9 - Iron deficiency anemia, unspecified, E53.8 - Deficiency of other specified B group vitamins, E78.5 - Hyperlipidemia, unspecified Comprehensive [place]. Panel Fast 2 Months E78.5 - Hyperlipidemia, unspecified Complete Blood Count Auto Diff 1 Year E78.5 - Hyperlipidemia, unspecified, Z00.00 - Encounter for general adult medical examination without abnormal findings Lipid Panel 1 Year E78.5 - Hyperlipidemia, unspecified, Z00.00 - Encounter for general adult medical examination without abnormal findings TSH reflex Free T4 1 Year E78.5 - Hyperlipidemia, unspecified, Z00.00 - Encounter for general adult medical examination without abnormal findings IRON PROFILE Today D50.9 - Iron deficiency anemia, unspecified, Z00.00 - Encounter for general adult medical examination without abnormal findings UA w Microscopic Today E53.8 - Deficiency of other specified B group vitamins, E78.5 - Hyperlipidemia, unspecified, Z00.00 - Encounter for general adult medical examination without abnormal findings Vitamin B12 and Folate Today E53.8 - Deficiency of other specified B group vitamins Comprehensive [place]. Panel Fast 1 Year E78.5 - Hyperlipidemia, unspecified, Z00.00 - Encounter for general adult medical examination without abnormal findings UA w Microscopic 1 Year E78.5 - Hyperlipidemia, unspecified, Z00.00 - Encounter for general adult medical examination without abnormal findings Medications: New atorvastatin 20 mg PO DAILY 90 tabs 3RF
== END 2024-10-03 14:55 | disposition home or self-care (01) ==
PROVIDERS: PCP Internal Medicine; Visit Provider Internal Medicine
DX: Z00.00 Encounter for general adult medical examination without abnormal findings (principal); E78.5 Hyperlipidemia, unspecified; E53.8 Deficiency of other specified B group vitamins; D50.9 Iron deficiency anemia, unspecified

== ENCOUNTER → 2024-10-03 14:01 | Outpatient (BNVA) | payer BC, SELFPAY | PROVIDERS: PCP Internal Medicine; Visit Provider Internal Medicine | DX: Z00.00 Encounter for general adult medical examination without abnormal findings (principal); E78.5 Hyperlipidemia, unspecified; E53.8 Deficiency of other specified B group vitamins; D50.9 Iron deficiency anemia, unspecified | CPT/HCPCS: 96127 ==

== ENCOUNTER 2024-10-04 06:24 | Outpatient (REF) | payer BC, SELFPAY ==
[2024-10-04 10:18] LABS: Appearance Urine Clear; Color Urine Yellow; Glucose Urine UA Negative (Negative); Leukocyte Esterase Urine Negative (Negative); Nitrite Urine Negative (Negative); PH 7.5 (5.0-9.0); Specific Gravity - Urine 1.015 (1.005-1.025); Urine Blood Negative (Negative); Urine Ketones Negative (Negative); Urine Protein Negative (Neg-Trace)
[2024-10-04 10:22] LABS: Bacteria Urine None Seen (None Seen); Hyaline Casts Urine 0-2 /LPF (0-2); RBC Urine 0-2 /HPF (0-2); WBC Urine 0-5 /HPF (0-5)
[2024-10-04 10:23] LABS: MANUAL DIFF FLAG NO
[2024-10-04 10:48] LABS: Basophils Percent Auto 0.8 % (0-2); Eosinophils Absolute Auto 0.2 X10*3/uL (0.0-0.4); Hematocrit 39.3 % (37.0-47.0); Hemoglobin 13.2 g/dl (12.0-16.0); Imm Gran Abs Auto 0.01 X10*3/uL (0.00-0.03); Imm Gran Pct Auto 0.2 % (0.0-0.4); Lymphocytes Absolute Auto 1.6 X10*3/uL (1.2-4.9); Lymphocytes Percent Auto 33.4 % (20-40); Mean Corpuscular HGB Conc 33.6 g/dl (31.0-35.0); Mean Corpuscular Hemoglobin 30.6 pg (27.0-33.0); Mean Corpuscular Volume 91.2 fL (80.0-98.0); Monocytes Absolute Auto 0.4 X10*3/uL (0.1-1.2); Monocytes Percent Auto 7.8 % (2-11); Neutrophils Absolute Auto 2.6 x10*3/uL (2.0-8.3); Neutrophils Percent Auto 53.8 % (45-73); Platelet Count 228 X10*3/uL (160-400); Red Blood Count 4.31 X10*6/uL (4.20-5.50); Red Cell Distribution Width 12.8 % (11.0-16.0); White Blood Count 4.8 X10*3/uL (4.8-10.8)
[2024-10-04 11:24] LABS: Alanine Aminotransferase 13 U/L (0-31); Albumin Level 4.2 g/dL (3.5-5.0); Alkaline Phosphatase 35 U/L (39-117); Anion Gap 15 (12-20); Aspartate Amino Transferase 19 U/L (5-31); Bilirubin Total 0.6 mg/dL (0.0-1.0); Blood Urea Nitrogen 13 mg/dL (9-16); Carbon Dioxide 25 mmol/L (22-29); Chloride 104 mmol/L (96-108); Cholesterol 224 mg/dL (<200); Estimated Glomerular Filt Rate > 60; Glucose Fasting 82 mg/dL (60-99); HDL Cholesterol 49 mg/dL (>40); Iron 100 mcg/dL (30-160); LDL Cholesterol Calculated 139 mg/dL (<100); Percent Iron Saturation 36 % (15-50); Potassium 4.2 mmol/L (3.3-5.1); Sodium 140 mmol/L (135-145); TSH reflex Free T4 0.99 uIU/mL (0.32-4.0); Total Iron Binding Capacity 278 mcg/dL (228-428); Total Protein 7.5 g/dL (6.5-8.0); Triglycerides 181 mg/dL (<150); Unsaturated Iron Binding 178 ug/dL
[2024-10-04 11:33] LABS: Folate 11.2 ng/mL (> or = 4.0); Vitamin B12 208 pg/mL (200-900)
[2024-10-06 07:19] LABS: LDL Cholesterol Direct 140 mg/dL (<100)
== END 2024-10-04 06:25 | disposition home or self-care (01) ==
LOC: HO.HMGCLDS 06:24
PROVIDERS: PCP Internal Medicine; Visit Provider Internal Medicine
DX: Z00.00 Encounter for general adult medical examination without abnormal findings (principal); E53.8 Deficiency of other specified B group vitamins; E78.5 Hyperlipidemia, unspecified; D50.9 Iron deficiency anemia, unspecified
CPT/HCPCS: 36415; 80053; 80061; 81001; 82607; 82746; 83540; 83721; 84443; 85025

== ENCOUNTER 2024-12-05 06:17 | Outpatient (REF) | payer BC, SELFPAY ==
--- OUTSIDE RECORDS SUMMARY | 2024-12-05 06:20 | XMS_ITS ---
Author Name [facility] Organization Unknown Care Team Organization Name Specialty Phone Email Start Date End [facility] te Office of the Regional Retail Sales Manager ([facility]) 07/15/2024
[2024-12-05 08:47] LABS: Alanine Aminotransferase 14 U/L (0-31); Albumin Level 4.1 g/dL (3.5-5.0); Alkaline Phosphatase 40 U/L (39-117); Anion Gap 13 (12-20); Aspartate Amino Transferase 21 U/L (5-31); Bilirubin Total 0.2 mg/dL (0.0-1.0); Blood Urea Nitrogen 22 mg/dL (9-16); Carbon Dioxide 22 mmol/L (22-29); Chloride 110 mmol/L (96-108); Cholesterol 133 mg/dL (<200); Estimated Glomerular Filt Rate > 60; Glucose Fasting 97 mg/dL (60-99); HDL Cholesterol 44 mg/dL (>40); LDL Cholesterol Calculated 75 mg/dL (<100); Potassium 4.6 mmol/L (3.3-5.1); Sodium 140 mmol/L (135-145); Total Protein 6.9 g/dL (6.5-8.0); Triglycerides 74 mg/dL (<150)
== END 2024-12-05 06:18 | disposition home or self-care (01) ==
LOC: HO.LAB 06:17
PROVIDERS: PCP Internal Medicine; Visit Provider Internal Medicine
DX: E78.5 Hyperlipidemia, unspecified (principal); E53.8 Deficiency of other specified B group vitamins; D50.9 Iron deficiency anemia, unspecified
CPT/HCPCS: 36415; 80053; 80061

== ENCOUNTER 2025-08-15 08:51 | Outpatient (AMB) | payer BC, SELFPAY ==
[2025-08-15 08:56] VITALS: BP 132/90; PULSE 67; TEMP 36.3; O2SAT 96; BMI 26.6
--- NOTE | 2025-08-15 08:56 | AM.OFFWIN_ITS ---
Intake Vital Signs 08/15/25 08:56 Height 5 ft 6 in Weight 165 lb BMI 26.6 BP 132/90 H Blood Pressure Location Lt brachial Position Sitting Pulse 67 Pulse Source Pulse Oximeter Temp 97.4 F Temp Source Oral Pulse Oximetry (%) 96 Oxygen Delivery Method Room Air Intake Visit Reasons: EP Possible UTI Intake Note: Patient presents c/o left back pain, urinary burning x few days. Patient Tobacco Use Status: Never used Tobacco Allergies amoxicillin (AMOXICILLIN) Allergy (Unknown, Verified 08/15/25 09:02) Hives, rash flaxseed (FLAXSEED) Allergy (Unknown, Verified 08/15/25 09:02) Anaphylaxis, Throat swelling Medication List - Last Reconciled 08/15/25 by Tracy Avelar MD ascorbic acid (vitamin C) 500 mg PO DAILY atorvastatin 20 mg PO DAILY epinephrine (EpiPen 2-Med) 0.3 mg (0.3 mL) IM Q10M PRN levofloxacin 500 mg PO DAILY 7 days levothyroxine 125 mcg PO DAILY pantoprazole (Protonix) 40 mg PO BID sodium,potassium,mag sulfates 17.5-3.13-1.6 gram PO HPI EP Possible UTI HPI Details Patient is a 49-year-old female came in today to be evaluated for possible UTI Symptoms has been going on for the past 1 week off and on Patient says that she has had UTI in the past and it feels like it There is no blood in the urine Review of system reveals no fever no vomiting no diarrhea no abdominal cramping However she has started having pain left flank area mild since yesterday Her urinalysis shows positive leuk esterase and 2+ blood I am treating her with Levaquin 500 mg once a day for 7 days We will send the urine for culture [facility] Medical History Mammogram normal Normal Pap smear Vitamin B12 deficiency Hyperlipemia Annual physical exam Iron (Fe) deficiency anemia Uterine fibroid Hypercholesterolemia Graves disease Migraine without aura and without status migrainosus, not intractable Surgical History Hx of hysterectomy H/O removal of cyst History of radioactive iodine thyroid ablation History of ganglion cyst Family History Father Stroke History of heart bypass surgery COPD (chronic obstructive pulmonary disease) Mental health disorder Mother Asthma Mental health disorder Brother Heart attack Brother No problems noted. Sister No problems noted. 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[employer], 2 children 19 and 16 yo (2021) Housing: House Patient Tobacco Use Status: Never used Tobacco e-Cigarette/Vaping Use: Never Used service: No Current occupational status: employed Cognitive needs: No Hearing needs: No Vision needs: No Review of Systems Const All systems reviewed & are unremarkable except as noted in HPI and below Physical Exam Vital Signs: Last Vital Signs Temp 97.4 F 08/15/25 08:56 Pulse 67 08/15/25 08:56 BP 132/90 H 08/15/25 08:56 Pulse Ox 96 08/15/25 08:56 Oxygen Delivery Method Room Air 08/15/25 08:56 BMI result Body Mass Index 26.6 Const General: no acute distress Orientation/consciousness: patient oriented x3 Eyes General: appearance normal, both eyes and all related structures Resp Effort & Inspection: normal respiratory effort and able to speak in complete sentences Back/Spine/Pelvis Other: Mild left-sided CVAT Neuro General: patient oriented x3 Psych Mental Status: mental status grossly normal Results AMB Urinalysis, Automated UA Leukoctes 70 Ying/uL Last Edit by Landy Delgado CMA on 08/15/25 09:23 UA Nitrite Negative Last Edit by Landy Delgado CMA on 08/15/25 09:23 UA Urobilinogen 0.2 mg/dL Last Edit by Landy Delgado CMA on 08/15/25 09: 23 UA Protein 0 mg/dL Last Edit by Landy Delgado CMA on 08/15/25 09:23 UA pH 6.0 Last Edit by Landy Delgado CMA on 08/15/25 09:23 UA Blood 80 James/uL Last Edit by Landy Delgado CMA on 08/15/25 09:23 UA Specific [place] 1.010 Last Edit by Landy Delgado CMA on 08/15/25 09 :23 UA Ketone Negative Last Edit by Landy Delgado CMA on 08/15/25 09:23 UA Bilirubin 0 mg/dL Last Edit by Landy Delgado CMA on 08/15/25 09:23 UA Glucose 0 mg/dL Last Edit by Landy Delgado CMA on 08/15/25 09:23 Results Reviewed Results Reviewed: Laboratory Last Values Urine pH (Auto) 6.0 08/15/25 09:21 Specific [place] (Auto) 1.010 08/15/25 09:21 Urine Protein (Auto) 0 mg/dL 08/15/25 09:21 Glucose (UA)(Auto) 0 mg/dL 08/15/25 09:21 Urine Ketones (Auto) Negative 08/15/25 09:21 Urine Blood (Auto) 80 James/uL L* 08/15/25 09:21 Urine Nitrite (Auto) Negative 08/15/25 09:21 Urine Bilirubin (Auto) 0 mg/dL 08/15/25 09:21 Urine Urobilinogen (Auto) 0.2 mg/dL 08/15/25 09:21 Leukocyte Esterase (Auto) 70 Ying/uL L* 08/15/25 09:21 Assessment & Plan Assessment & Plan (1) Acute pyelonephritis: Code(s): N10 - Acute pyelonephritis (2) Acute cystitis with hematuria: Code(s): N30.01 - Acute cystitis with hematuria Plan Patient is a 49-year-old female came in today to be evaluated for possible UTI Symptoms has been going on for the past 1 week off and on Patient says that she has had UTI in the past and it feels like it There is no blood in the urine Review of system reveals no fever no vomiting no diarrhea no abdominal cramping However she has started having pain left flank area mild since yesterday Her urinalysis shows positive leuk esterase and 2+ blood I am treating her with Levaquin 500 mg once a day for 7 days We will send the urine for culture Orders: Orders Urine Culture Today N30.01 - Acute cystitis with hematuria AMB Urinalysis Automated Today Z13.9 - Encounter for screening, unspecified Medications: New levofloxacin 500 mg PO DAILY 7 tabs 0RF 7 days Coding Level of Care Code Est Pt Level 4 (79905) Diagnoses Acute pyelonephritis N10 Acute cystitis with hematuria N30.01
--- OUTSIDE RECORDS SUMMARY | 2025-08-15 09:42 | XMS_ITS ---
Author Name [facility] Organization Unknown Care Team Organization Name Specialty Phone Email Start Date End [facility] [employer] Outbound ADT-[facility] 08/12 [facility] 07/15/2024
== END 2025-08-15 09:13 | disposition home or self-care (01) ==
PROVIDERS: PCP Internal Medicine; Visit Provider Internal Medicine
DX: N10 Acute pyelonephritis (principal); N30.01 Acute cystitis with hematuria; Z13.9 Encounter for screening, unspecified

== ENCOUNTER 2025-08-15 08:51 | Outpatient (REF) | payer BC, SELFPAY ==
--- OUTSIDE RECORDS SUMMARY | 2025-08-15 10:51 | XMS_ITS | Data Portability ---
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 Bakers cyst looks to have decreased in swelling. Plan: Continue PT @ 2x/wk to decrease pain, increase ROM, optimize mechanics for functional mobility with gait and stairs, and facilitate independence with functional ADL's. Manage bakers cyst with 15' of ice massage at end of session to decrease inflammation [email or web address] Not available 03/09/2025 12:18:30 03/14/2025 03/14/2025 Assessment: Patient demonstrating good muscular endurance and strength throughout session. Plan: Continue PT @ 2x/wk to decrease pain, increase ROM, optimize mechanics for functional mobility with gait and stairs, and facilitate independence with functional ADL's. Manage bakers cyst with 15' of ice massage at end of session to decrease inflammation [email or web address] Not available 03/14/2025 20:40:35 03/17/2025 03/17/2025 Assessment: Patient demonstrating good muscular endurance and strength throughout session. Plan: Continue PT @ 2x/wk to decrease pain, increase ROM, optimize mechanics for functional mobility with gait and stairs, and facilitate independence with functional ADL's. Manage bakers cyst with 15' of ice massage at end of session to decrease inflammation [email or web address] Not available 03/16/2025 20:20:15 03/21/2025 03/21/2025 Physical Therapy Discharge Summary Tests and Measurements: Knee ROM: 0-125 Comments/Assessme nt: Patient has been discharged from PT to [facility] with emphasis on safe mobility and good understanding of continuation of exercises for further functional gains. All goals met and questions answered at this time. Discharge Summary Completed By: Quinton Thompson Not available 03/21/2025 23:16:18 05/05/2025 05/05/2025 Initial diagnosi s discussed with patient today. At this time likely we most pain discomfort, underlying degenerative patellofemoral joint. Does have a fair amount of tilt on preoperative x-rays. Not seeing new signs of ligamentous or new meniscal injury. Discussed multiple treatment options to include physical therapy as well as cortisone injections. At this point time patient was to go forward with a cortisone injection we will continue the home stretching strengthening program that she learned at physical therapy. Patient agrees with treatment plan. All questions asked and answered. [email or web address] Not available 05/05/2025 12:15:36 Plan of Treatment Reminders Order Date Submit Date Provider Last Modified By Organization Details Last Modified Time Details Appointments None record ed. Lab None record ed. Referral None record ed. Procedures None record ed. Surgeries None record ed. Imaging None record ed. Medication Orders None record ed. Patient TargetsNo targets recorded. Patient InstructionsNo instructions recorded. Reason for Referral None Reported. Results Created Date Observation Date Name Description Value Unit Range Abnormal Flag Note LastModifiedBy Organization Detail LastModifiedTime 02/17/20 25 02/16/2025 US, ray x, venou s, lower extre mity No observ ation record ed. [email or web address] [facility] [place] [address] [facility] [address], [place], [address], 02/20/2025 12:42:33 Result Notes None recorded. Problems Name Problem SNOMED Code Status Onset Date Resolution Date Notes Provider Name and Address Organization Details Recorded Time Sprain of posterior cruciate ligament of left knee joint 00989256549760 109 Active 2023 Devyn Stearns, MARVINT [address], [place], [address], [facility] 4 10:56:05 Rupture of synovial popliteal cyst Active 2023 Devyn Stearns, DPT [address], [place], [address], [facility] 4 10:56:35 Acute tear of medial meniscus of left knee 75299851417191 107 Active 2024 MARIO JEFFREYBROOK [facility] 5 10:51:59 Pain of left calf 01803309878230 09 Active 2024 NHAN STEVEN [facility] 5 13:44:16 Swollen calf 464599853 Active 2024 SHAWNEE STEVEN [facility] 13:45:15 Problem Notes None recorded. Procedures Surgical History Date Name Laterality Status Provider Name and Address Organization Details Recorded Time 05/05/20 Sports Knee 4&1 completed Giovanny Delgado PA-C [address], [place], [address], [facility] 05/05/2025 12:14:50 03/24/20 75552 Therapeutic Exercise (1:1) cancelled Donna Mcgee PTA [address], [place], [address], [facility] 03/23/2025 19:49:14 03/24/20 82669: Neuromuscular Re-Education cancelled Donna Mcgee PTA [address], [place], [address], [facility] 03/23/2025 19:49:14 03/21/20 20071 Therapeutic Exercise (1:1) completed QUINTON THOMPSON PT [address], [place], [address], [facility] 03/21/2025 21:51:06 03/21/20 55198: Neuromuscular Re-Education completed QUINTON THOMPSON PT [address], [place], [address], [facility] 03/21/2025 21:50:55 03/17/20 99618 Therapeutic Exercise (1:1) completed QUINTON DONNA, PT [address], [place], [address], [facility] 03/16/2025 20:20:15 03/14/20 30747 Therapeutic Exercise (1:1) completed QUINTON DONNA, PT [address], [place], [address], [facility] 03/14/2025 08:35:08 03/14/20 87800: Manual therapy completed QUINTON DONNA, PT [address], [place], [address], [facility] 03/14/2025 20:39:43 03/09/20 53380 Therapeutic Exercise (1:1) completed QUINTON DONNA, PT [address], [place], [address], [facility] 03/09/2025 12:09:39 03/07/20 07564 Therapeutic Exercise (1:1) completed QUINTON DONNA, PT [address], [place], [address], [facility] 03/07/2025 22:07:23 03/07/20 12700: Manual therapy completed QUINTON DONNA, PT [address], [place], [address], [facility] 03/07/2025 22:07:13 03/02/20 82649 Therapeutic Exercise (1:1) completed QUINTON DONNA, PT [address], [place], [address], [facility] 03/02/2025 21:16:57 03/02/20 99440: Neuromuscular Re-Education completed QUINTON DONNA, PT [address], [place], [address], [facility] 03/02/2025 21:17:05 02/28/20 51566 Therapeutic Exercise (1:1) completed QUINTON THOMPSON, PT [address], [place], [address], [facility] 02/26/2025 22:04:30 02/28/20 01823: Manual therapy completed QUINTON THOMPSON, PT [address], [place], [address], [facility] 02/26/2025 22:04:30 02/25/20 73032 Therapeutic Exercise (1:1) completed QUINTON THOMPSON, PT [address], [place], [address], [facility] 02/23/2025 23:12:55 02/25/20 29493: Manual therapy completed QUINTON THOMPSON, PT [address], [place], [address], [facility] 02/23/2025 23:13:29 02/23/20 41111 Therapeutic Exercise (1:1) completed QUINTON THOMPSON, PT [address], [place], [address], [facility] 02/22/2025 10:29:59 02/23/20 00922: Low complexity PT Eval completed QUINTON THOMPSON, PT [address], [place], [address], [facility] 02/22/2025 10:29:56 12/16/19 25 Sports Knee Asp & Inj completed Oni Koroma MD [address], [place], [address], [facility] 12/15/2024 11:00:34 10/26/19 25 Sports Knee Asp & Inj completed Oni Koroma MD [address], [place], [address], [facility] 10/26/2024 13:40:20 07/14/20 24 60529 Therapeutic Exercise (1:1) completed Alejandro Ghotra HOUSEKEEPER HEAD [address], [place], [address], [facility] 07/13/2024 14:08:27 07/12/20 24 19570 Therapeutic Exercise (1:1) completed MARVIN ShawT [address], [place], [address], [facility] 07/12/2024 11:49:13 07/12/20 24 26789: Hot or Cold Pack completed MARVIN ShawT [address], [place], [address], [facility] 07/12/2024 11:49:13 07/07/20 24 33954 Therapeutic Exercise (1:1) completed Alejandro Ghotra PTA [address], [place], [address], [facility] 07/06/2024 09:35:17 07/07/20 24 13433: Hot or Cold Pack completed Alejandro Ghotra PTA [address], [place], [address], [facility] 07/06/2024 09:35:17 07/05/20 24 34342 Therapeutic Exercise (1:1) completed Alejandro Ghotra PTA [address], [place], [address], [facility] 07/05/2024 09:01:06 07/05/20 24 05670: Hot or Cold Pack completed Alejandro Ghotra PTA [address], [place], [address], [facility] 07/05/2024 09:01:06 07/01/20 24 13501 Therapeutic Exercise (1:1) completed Devyn Stearns DPT [address], [place], [address], [facility] 07/01/2024 08:34:39 07/01/20 24 87349: Hot or Cold Pack completed MARVIN ShawT [address], [place], [address], [facility] 07/01/2024 11:06:45 07/01/20 32575: Manual therapy completed Devyn Stearns DPT [address], [place], [address], [facility] 07/01/2024 11:06:53 06/29/20 54899 Therapeutic Exercise (1:1) completed Devyn Stearns DPT [address], [place], [address], [facility] 06/29/2024 11:24:44 06/16/20 42150 Therapeutic Exercise (1:1) completed Devyn Stearns DPT [address], [place], [address], [facility] 06/16/2024 10:56:48 06/16/20 43570: Low complexity PT Eval completed Devyn Stearns DPT [address], [place], [address], [facility] 06/16/2024 10:56:55 06/08/20 JZKNEE INJ completed Dontrell Yin PA-C [address], [place], [address], [facility] 06/08/2024 15:09:44 03/29/20 Other completed Deep Valencia [facility] 06/08/2024 15:02:01 Imaging Results None recorded. Procedure Notes None recorded. Medical Equipment None Reported. Allergies Allergen ID Allergen Name Allergen Category Reaction Reaction Severity Criticality Documentation Date Start Date Code Code System Note Provider Name and Address Organization Details Recorded Time 22595 amoxicill in trihydrat e medicatio n Not available Not available Not available 11/02/20232022 31154 8 RxNorm Not Available [facility] 11:53:37 35931 flaxseed extract food,medi cation Not available Not available Not available 11/02/20232022 20798 4 RxNorm Not Available [facility] 4 11:53:37 Medications Name Sig Start Date Stop Date Status Note LastModified by Organization Details LastModified Time atorvastati n 20 mg tablet TAKE 1 TABLET BY MOUTH EVERY DAY active Not Available Not Available No t Available atorvastati n 10 mg tablet 10 mg every day by oral route. 12/10 completed Not Available Not Available Not Available ibuprofen 800 mg tablet TAKE 1 TABLET BY MOUTH EVERY 8 HOURS 05/26 completed Not Available Not Available Not Available phenazopyri dine 200 mg tablet TAKE 1 TABLET BY MOUTH THREE TIMES A DAY NEEDED FOR PAIN FOR 2 DAYS 05/26 completed Not Available Not Available Not Available acetaminoph en 500 mg tablet TAKE 2 TABLET BY MOUTH EVERY 6 HOURS NEEDED FOR PAIN 05/26 completed Not Available Not Available Not Available pantoprazol e 40 mg tablet,jacob yed release TAKE 1 TABLET BY MOUTH TWICE A DAY active Not Available Not Available No t Available levothyroxi ne 125 mcg tablet TAKE 1 TABLET BY MOUTH EVERY DAY active Not Available Not Available No t Available docusate sodium 100 mg capsule TAKE 1 CAPSULE BY MOUTH 2 TIMES A DAY NEEDED FOR CONSTIPAT ION 05/26 completed Not Available Not Available Not Available epinephrine 0.3 mg/0.3 mL injection, auto-inject or INJECT INTRAMUSC ULARLY EVERY 10 MINUTES NEEDED FOR ANAPHYLAX IS FOR 2 DOSES active Not Available Not Available No t Available naproxen 500 mg tablet TAKE 1 TABLET BY MOUTH TWICE A DAY 2024 active Not Available Not Available Not Avai lable simethicone 80 mg chewable tablet CHEW 1 TABLET 4 TIMES A DAY 05/26 completed Not Available Not Available Not Available oxycodone 5 mg tablet TAKE 1-2 TABLETS EVERY 6 HOURS NEEDED FOR 3 DAY RX. active Not Available Not Available No t Available nitrofurant oin monohydrate /macrocryst als 100 mg capsule TAKE 1 CAPSULE BY MOUTH TWICE A DAY FOR 5 DAYS 05/26 completed Not Available Not Available Not Available tranexamic acid 650 mg tablet TAKE 2 TABLETS BY MOUTH 3 TIMES A DAY DURING MENSES FOR 5 DAYS 05/26 completed Not Available Not Available Not Available sodium,pota ssium,mag sulfates 17.5 gram-3.13 gram-1.6 gram oral soln FOR BOWEL PREP 05/26 completed Not Available Not Available Not Available Vitals Date Recorded Body height Body mass index (BMI) Body weight Provider Name and Address Organization Details Last Updated DateTime 05/05/2025 167.64 cm 25.8 kg/m2 52480.78 g Beth Angelo [facility] 05/05/2025 10:51:14 Social History Question Answer Notes LastModified by [employer] Details LastModified Time Tobacco Smoking Status Never Smoker Deep Valencia adelita [facility] 06/08/2024 15:02:01 What Is Your Relationship Status? [email or web address] Information not available 06/08/2024 Sex: Unknown Functional Status Question Answer Note LastModified by [employer] Details LastModified Time How many times per week do you consume alcohol? Less than 1 time per week [email or web address] Information not available 06/08/2024 Do you use any illicit or recreational drugs? No [email or web address] Information not available 06/08/2024 Do you or have you ever used any other forms of tobacco or nicotine? No Information not available 06/08/2024 What is your level of alcohol consumption? Occasional [email or web address] Information not available 12/15/2024 Do you or have you ever used e-cigarettes or vape? Never used electronic cigarettes [email or web address] Information not available 06/08/2024 Mental Status None recorded. Family History Nothing Reported. Medical History Condition Response Allergies/Hayfever N Coronary Artery Disease N Anxiety/Depression N Breathing or lung disorders N Emphysema N Nerve Disorders N Thyroid Problems Y COPD N Pacemaker N Anemia N Kidney/Bladder Problems N Vascular Disease N Heart Trouble N Heart Attack (CA) N Gastrointestinal Disease N Cholesterol Y Diabetes N Autoimmune disease N Inflammatory Joint disease N Bleeding Disorder N Orthotics N Arthritis N Seizures/Epilepsy N Blood Clot N AIDS/HIV N Congestive Heart Failure (CHF) N Acid Reflux (GERD) N Cancer N Stroke N Asthma N Circulation Problems N Peripheral Vascular Disease N Sleep Apnea N Hepatitis N Heart Disease N Rheumatoid Arthritis N Arrhythmia N Pulmonary Embolism N Headaches Y Fibromyalgia N Hypertension N Osteoporosis N Gynecological HistoryNo gynecological history recorded. Obstetrics History GPAL:G 0 P 0 0 0 0 Past Encounters Encounter ID Performer Location Encounter Start Date Encounter Closed Date Diagnosis/Indication Diagnosis SNOMED-CT Code Diagnosis ICD10 Code Diagnosis IMO Codes Diagnosis Note [id number] Dontrell Yin PA-C [facility] [address] [place] [address] 05/26/2024 08:13:15 06/14/2024 14:53:01 Pain of knee region 3518020399 M25.569 Derangemen t of left knee 8214691125 7069825 M23.92 [id number] Dontrell Yin PA-C [facility] [address] [place] [address] 06/08/2024 14:53:07 07/04/2024 15:51:04 Sprain of medial collateral ligament of knee 57552611 S83.411D [id number] Devyn Stearns DPT [facility] [address] [place] [address] 06/16/2024 10:29:11 06/16/2024 11:56:23 Sprain of posterior cruciate ligament of left knee joint 9556532366 4681764 S83.522D 961089 Rupture of synovial popliteal cyst 7908557284 M66.0 [id number] ARIANNE Shawon [facility] [address] [place] [address] 06/29/2024 11:02:17 06/29/2024 11:47:24 Sprain of posterior cruciate ligament of left knee joint 8489556081 1766715 S83.522D 957448 Rupture of synovial popliteal cyst 4485881394 M66.0 7116826 [id number] Devyn Stearns DPT [facility] [address] [place] [address] 07/01/2024 10:23:32 07/01/2024 11:07:09 Sprain of posterior cruciate ligament of left knee joint 7507147983 2601021 S83.522D 940854 Rupture of synovial popliteal cyst 1364623416 M66.0 [id number] Alejnadro Ghotra PTA [facility] [address] [place] [address] 07/05/2024 11:59:30 07/05/2024 12:44:00 Sprain of posterior cruciate ligament of left knee joint 2849513100 1809205 S83.522D 330229 Rupture of synovial popliteal cyst 7445974420 M66.0 [id number] [id number] Alejandro Ghotra PTA [facility] [address] [place] [address] 07/07/2024 11:54:35 07/07/2024 13:00:00 Sprain of posterior cruciate ligament of left knee joint 0923664661 3077170 S83.522D 773220 Rupture of synovial popliteal cyst 6322640148 M66.0 [id number] Devyn Stearns, DPT [facility] [address] [place] [address] 07/12/2024 11:53:26 07/12/2024 12:35:26 Sprain of posterior cruciate ligament of left knee joint 7423591579 7419190 S83.522D 988556 Rupture of synovial popliteal cyst 8051768924 M66.0 8257655 [id number] Alejandro Ghotra PTA [facility] [address] [place] [address] 07/14/2024 11:21:29 07/14/2024 12:39:44 Sprain of posterior cruciate ligament of left knee joint 6840378349 0709610 S83.522D 233028 Rupture of synovial popliteal cyst 2837565601 M66.0 6935140 [id number] EL [facility] [address] [place] [address] 09/29/2024 08:30:28 10/13/2024 09:53:54 Sprain of posterior cruciate ligament of left knee joint 0849383609 7681876 S83.522D [id number] [id number] MD [facility] [address] [place] [address] 10/26/2024 13:15:46 11/10/2024 09:58:59 Sprain of posterior cruciate ligament of left knee joint 3944908175 6118988 S83.522D 170691 [id number] Oni Luber, MD [facility] [address] [place] [address] 12/15/2024 10:25:33 12/29/2024 12:13:08 Sprain of posterior cruciate ligament of left knee joint 3167667296 5188609 S83.522D 808854 Acute tear of medial meniscus of left knee 2549195729 9425481 S83.232A [id number] Giovanny Delgado PA-C [facility] [place] [address] 02/03/2025 14:41:54 02/15/2025 14:34:35 History of arthroscopy of knee joint 278108801 Z98.890 [id number] QUINTON THOMPSON, PT [facility] [address] [place] [address] 02/22/2025 15:04:12 02/22/2025 15:46:07 Acute meniscal tear, medial 797563123 S83.232A [id number] QUINTON THOMPSON, PT [facility] [address] [place] [address] 02/24/2025 09:26:09 02/24/2025 11:23:05 Acute meniscal tear, medial 818279137 S83.232A 561721 [id number] QUINTON THOMPSON, PT [facility] [address] [place] [address] 02/27/2025 15:25:45 02/27/2025 18:02:10 Acute meniscal tear, medial 699734423 S83.232A 173999 [id number] QUINTON THOMPSON, PT [facility] [address] [place] [address] 03/02/2025 13:55:46 03/02/2025 14:59:56 Acute meniscal tear, medial 432958510 S83.232A [id number] QUINTON THOMPSON, PT [facility] [address] [place] [address] 03/07/2025 12:53:26 03/07/2025 14:20:46 Acute meniscal tear, medial 355313168 S83.232A [id number] [id number] QUINTON THOMPSON, PT [facility] [address] [place] [address] 03/09/2025 09:56:53 03/09/2025 11:46:06 Acute meniscal tear, medial 612905201 S83.232A 870230 [id number] QUINTON THOMPSON, PT [facility] [address] [place] [address] 03/14/2025 14:56:58 03/14/2025 17:14:59 Acute meniscal tear, medial 424593588 S83.232A [id number] QUINTON THOMPSON, PT [facility] [address] [place] [address] 03/17/2025 08:30:09 03/17/2025 09:04:31 Acute meniscal tear, medial 467742505 S83.232A 704635 [id number] QUINTON THOMPSON, PT [facility] [address] [place] [address] 03/21/2025 13:26:57 03/21/2025 16:05:21 Acute meniscal tear, medial 317951367 S83.232A [id number] Giovanny Delgado PA-C [facility] [address] [place] [address] 05/05/2025 10:41:32 05/17/2025 12:28:45 Pain of knee region 5117342562 M25.561 G89.29 [id number] Health Concerns Section Related Observation LastModified by Organization Detai ls LastModified Time None Recorded Concern Status LastModified by Organization Details LastModified Time None Recorded Advance Directives Directive None Recorded Payers Insurance Date Sequence Insurance Name Policy Number Policy Mcknight Covered Member ID Mcknight Member ID Guarantor Name 05/17/2025 1 [employer] ([place]) [id number] H Arturo Hunt [id number] Bisi Hunt Notes Date Note Type Note Provider Name and Address Organization Details Recorded Time 03/09/2025 text/html Patient reports that they feel better since last visit, they felt that last sessions workout had helped to elevate the stiffness and discomfort that they had. Patient's next shift is thursday. QUINTON THOMPSON, PT [address], [place], [address], [facility] 03/09/2025 12:18:51 03/14/2025 text/html Patient reports that they worked Thursday and Thursday completeing a 12 and 4 hour shift. After work the patient states that their knee had increased swelling and stiffness. Patient does not complain of pain, but reports continued difficulty with stiffness and flexion of the knee. QUINTON THOMPSON, PT [address], [place], [address], [facility] 03/14/2025 20:40:55 03/17/2025 text/html Patient reports some moderate stiffness this morning, but 0/10 pain. Patient had less swelling after work this week. QUINTON THOMPSON, PT [address], [place], [address], [facility] 03/19/2025 20:46:15 03/21/2025 text/html Patient reports 0/10 pain today, and plans to d/c from therapy after this session. QUINTON THOMPSON, PT [address], [place], [id number], [facility] 03/21/2025 23:16:34 05/05/2025 text/html I am seeing the patient today under the supervision of Dr. Gdofrey who was available but who did not see the patient. Patient present for evaluation of left knee pain. Patient has history of medial meniscus tear status postarthroscopy and December of this year. States that does not feel that she is ever fully recovered from that surgery. Left knee continues to feel weak and will occasionally feel like it wants to give out. Has lot of pain discomfort over the anterior aspect the knee will have pain discomfort with terminal knee flexion as well. Difficulty going up and down stairs can from a seated position. No new injury. Giovanny Delgado PA-C [address], [place], [address], [facility] [place] [facility] 05/05/2025 12:16:01 OBGyn Episode No OBEpisode recorded.
== END 2025-08-15 08:52 | disposition home or self-care (01) ==
LOC: HO.LAB 08:51
PROVIDERS: PCP Internal Medicine; Visit Provider Internal Medicine
DX: N10 Acute pyelonephritis (principal); N30.01 Acute cystitis with hematuria
CPT/HCPCS: 81003; 87086; 87088; 87186